=== PATIENT | male | born 1930 | race African-American/Black ===

== ENCOUNTER 2017-09-17 09:10 | Inpatient (IN) | payer MEDICARE, BC ==
[~2017-09-17] VITALS: Ht 182.9 cm; Wt 81.6 kg
--- NOTE | 2017-09-17 09:20 | Emergency Room Report ---
History of Present Illness General Chief Complaint: Altered Mental Status Source: Patient, EMS Present Illness HPI The patient was brought in by EMS. There summoned to the [facility] facility for altered level of consciousness. The staff reports that the patient had decreased responsiveness. He does have a history of a stroke and has left-handed weakness. The patient denies any pain, headache, weakness, vomiting, diarrhea, dysuria, shortness of breath, chest pain, palpitations. He's not sure why they called. He was recently treated for facial cellulitis with Keflex. This ended last month. His son states he is back to baseline at this time. 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 Tissue pathology not clear at this time. The son states his dad has not been pleased with the staff at the SNF and feels this might have led to decreased responsiveness. Allergies: Coded Allergies: No Known Allergies (Unverified , 09/17/17) Patient History Past Medical History: see triage record Social History Narrative SNF - selective treatment POLST Reviewed Nursing Documentation: PMH: Agreed, PSxH: Agreed Review of Systems All Other Systems: negative except mentioned in HPI Physical Exam Vital Signs Date Time Temp Pulse Resp B/P (MAP) Pulse Ox O2 Delivery O2 Flow Rate FiO2 09/17/17 09:09 84 18 151/78 99 Room Air Sp02 EP Interpretation: reviewed, normal General Appearance: well appearing, no apparent distress, GCS 15, Chronically Ill Head: normocephalic Eyes: bilateral eye normal inspection, bilateral eye PERRL ENT: moist mucus membranes Neck: supple Respiratory: lungs clear, normal breath sounds Cardiovascular #1: regular rate, rhythm Cardiovascular #2: 2+ radial (R) Gastrointestinal: normal inspection, normal bowel sounds, non tender, no mass, non-distended Musculoskeletal: back normal, non-tender, other - decreased strength L side Neurologic: alert, DTRs symmetric, sensory intact, speech normal, motor weakness - LUE, oriented - x2 Psychiatric: mood/affect normal Skin: normal inspection, warm/dry Medical Decision Making Diagnostic Impression: Primary Impression: Altered mental status Qualified Codes: R40.4 - Transient alteration of awareness ER Course Patient was presents with altered will status which is transient. Differential includes electrolyte abnormality, extension of stroke, TIA, arrhythmia, occult infection amongst others. He denies symptoms at this time. The fairly complicated patient with a prior left-sided weakness. He is alert at this time. Evaluation EKG, cardiac monitoring, chest x-ray, CT head and lab evaluation. EKG without injury. CXR in infiltrates. CT with chronic white matter changes. Labs with normal WBC, H/H, platelets, lytes except for minimally elevated creat. Urine clear. Patient improved, but needing observation. Admit tele Dr. Mcneal who requests Dr. Ramos. Laboratory Tests Test 09/17/17 09:28 White Blood Count 7.6 K/UL (4.8-10.8) Red Blood Count 4.21 M/UL (4.70-6.10) L Hemoglobin 11.4 G/DL (14.2-18.0) L Hematocrit 36.8 % (42.0-52.0) L Mean Corpuscular Volume 87 FL (80-99) Mean Corpuscular Hemoglobin 27.0 PG (27.0-31.0) Mean Corpuscular Hemoglobin Concent 30.8 G/DL (32.0-36.0) L Red Cell Distribution Width 14.7 % (11.6-14.8) Platelet Count 232 K/UL (150-450) Mean Platelet Volume 6.1 FL (6.5-10.1) L Neutrophils (%) (Auto) 67.1 % (45.0-75.0) Lymphocytes (%) (Auto) 18.4 % (20.0-45.0) L Monocytes (%) (Auto) 9.3 % (1.0-10.0) Eosinophils (%) (Auto) 4.3 % (0.0-3.0) H Basophils (%) (Auto) 0.9 % (0.0-2.0) Prothrombin Time 10.5 SEC (9.30-11.50) Prothrombin Time INR 1.0 (0.9-1.1) PTT 26 SEC (23-33) Urine Color Pale yellow Urine Appearance Clear Urine pH 6.5 (4.5-8.0) Urine Specific [place] 1.010 (1.005-1.035) Urine Protein Negative (NEGATIVE) Urine Glucose (UA) Negative (NEGATIVE) Urine Ketones Negative (NEGATIVE) Urine Occult Blood Negative (NEGATIVE) Urine Nitrite Negative (NEGATIVE) Urine Bilirubin Negative (NEGATIVE) Urine Urobilinogen Normal MG/DL (0.0-1.0) Urine Leukocyte Esterase 1+ (NEGATIVE) H Urine RBC 0-2 /HPF (0 - 0) H Urine WBC 2-4 /HPF (0 - 0) Urine Squamous Epithelial Cells Occasional /LPF Urine Bacteria Occasional /HPF (NONE) Sodium Level 141 MMOL/L (136-145) Potassium Level 4.6 MMOL/L (3.5-5.1) Chloride Level 104 MMOL/L (98-107) Carbon Dioxide Level 29 MMOL/L (21-32) Anion Gap 8 mmol/L (5-15) Blood Urea Nitrogen 13 mg/dL (7-18) Creatinine 1.4 MG/DL (0.55-1.30) H Estimate Glomerular Filtration Rate mL/min (>60) Glucose Level 117 MG/DL (74-106) H Lactic Acid Level Pending Calcium Level 10.2 MG/DL (8.5-10.1) H Total Bilirubin 0.5 MG/DL (0.2-1.0) Aspartate Amino Transferase (AST) 25 U/L (15-37) Alanine Aminotransferase (ALT) 32 U/L (12-78) Alkaline Phosphatase 121 U/L (46-116) H Total Creatine Kinase 44 U/L (26-308) Troponin I 0.049 ng/mL (0.000-0.056) Pro-B-Type Natriuretic Peptide 108 pg/mL (0-125) Total Protein 6.1 G/DL (6.4-8.2) L Albumin 3.2 G/DL (3.4-5.0) L Globulin 2.9 g/dL Albumin/Globulin Ratio 1.1 (1.0-2.7) Urine Opiates Screen Negative (NEGATIVE) Urine Barbiturates Screen Negative (NEGATIVE) Phencyclidine (PCP) Screen Negative (NEGATIVE) Urine Amphetamines Screen Negative (NEGATIVE) Urine Benzodiazepines Screen Negative (NEGATIVE) Urine Cocaine Screen Negative (NEGATIVE) Urine Marijuana (THC) Screen Negative (NEGATIVE) EKG Diagnostic Results Rate: normal Rhythm: NSR ST Segments: no acute changes Rhythm Strip Diag. Results EP Interpretation: yes Rhythm: NSR, no PVC's, no ectopy Chest X-Ray Diagnostic Results Chest X-Ray Diagnostic Results : Chest X-Ray Ordered: Yes # of Views/Limited/Complete: 1 View Indication: Other EP Interpretation: Yes Interpretation: no consolidation, no effusion, no pneumothorax, no acute cardiopulmonary disease, other - elevated R hemidiaphragm Impression: No acute disease Electronically Signed by: Endy Roger MD CT/MRI/US Diagnostic Results CT/MRI/US Diagnostic Results : Imaging Test Ordered: head Impression chronic white matter changes, no bleed Last Vital Signs Date Time Temp Pulse Resp B/P (MAP) Pulse Ox O2 Delivery O2 Flow Rate FiO2 09/18/17 00:00 97.3 83 20 164/74 97 Room Air Status: improved Disposition: ADMITTED INPATIENT Condition: Serious Endy Roger M.D. Sep 17, 2017 09:20
[2017-09-17] MEDS ORDERED: ASPIRIN81 MG ORAL (09:21)
[2017-09-17] MEDS ORDERED: ALFUZOSIN HCL10 MG PO (09:21)
[2017-09-17] MEDS ORDERED: ATORVASTATIN CA40 MG ORAL (09:21)
[2017-09-17] MEDS ORDERED: METOPROLOL TART25 MG ORAL (09:24)
[2017-09-17] MEDS ORDERED: MULTIVITAMINS1 EAC8 ORAL (09:24)
[2017-09-17] MEDS ORDERED: COLACE100 MG ORAL (09:24)
[2017-09-17] MEDS ORDERED: TENCON 50-3251 EACH PO (09:24)
[2017-09-17] MEDS ORDERED: MILK OF MA400 MG/51 ORAL (09:24)
[2017-09-17] MEDS ORDERED: PLAVIX75 MG ORAL (09:24)
[2017-09-17 09:25] VITALS: BP 141/66
[2017-09-17] MEDS ORDERED: RANEXA500 MG ORAL (09:25)
[2017-09-17] MEDS ORDERED: PROSCAR5 MG ORAL (09:25)
[2017-09-17] MEDS ORDERED: SINGULAIR10 MG ORAL (09:25)
[2017-09-17] MEDS ORDERED: VITAMIN A & D113 GM TP (09:25)
[2017-09-17 10:07] LABS: BASOPHILS % (AUTO) 0.9 % (0.0-2.0); EOSINOPHILS % (AUTO) 4.3 % (0.0-3.0); LYMPHOCYTES % (AUTO) 18.4 % (20.0-45.0); MEAN CORPUSCULAR HGB CONC 30.8 G/DL (32.0-36.0); MEAN CORPUSCULAR VOLUME 87 FL (80-99); MEAN PLATELET VOLUME 6.1 FL (6.5-10.1); MONOCYTES % (AUTO) 9.3 % (1.0-10.0); NEUTROPHILS % (AUTO) 67.1 % (45.0-75.0); PLATELET COUNT 232 K/UL (150-450); RED BLOOD COUNT 4.21 M/UL (4.70-6.10); RED CELL DISTRIBUTION WIDTH 14.7 % (11.6-14.8); WHITE BLOOD COUNT 7.6 K/UL (4.8-10.8)
[2017-09-17 10:10] LABS: KETONES,URINE NEGATIVE (NEGATIVE); LEUKOCYTE ESTERASE ,URINE 1+ (NEGATIVE); NITRITE,URINE NEGATIVE (NEGATIVE); PH,URINE 6.5 (4.5-8.0); PROTEIN,URINE NEGATIVE (NEGATIVE); UROBILINOGEN,URINE NORMAL MG/DL (0.0-1.0)
--- NOTE | 2017-09-17 10:12 | Diagnostic Imaging Report ---
Dictation: Chest pain Comparison: None Findings: Single view the chest is obtained. Heart size is normal. Pulmonary vasculature normal. There is elevation of the right hemidiaphragm compared to the left. No acute osseous abnormalities. Impression: No definite acute chest disease Elevated right hemidiaphragm
[2017-09-17 10:18] LABS: PROTHROMBIN TIME 10.5 SEC (9.30-11.50)
--- NOTE | 2017-09-17 10:18 | Diagnostic Imaging Report ---
Indication: ALOC Comparison: Altered level of consciousness Technique: Contiguous helical CT images of the brain was performed with [address] dose: Total DLP: 1333 mGycm; CTDI volume: 70.4 mGy Findings: There is no acute intracranial hemorrhage or infarct. No mass, mass effect or midline shift identified. Ventricles and sulci are prominent secondary to global cortical atrophy. There are no extra-axial fluid collections seen. Periventricular chronic ischemic changes are noted. Bony calvarium is intact. Mastoid air cells and visualized paranasal sinuses are clear. Impression: 1. No acute intracranial abnormalities. 2. Global cortical atrophy with periventricular chronic ischemic changes. The CT scanner at [facility] is accredited by the [employer] and the scans are performed using protocols designed to limit radiation exposure to as low as reasonably achievable to attain images of sufficient resolution adequate for diagnostic evaluation.
[2017-09-17 10:21] LABS: APPEARANCE,URINE CLEAR
[2017-09-17 10:24] LABS: ANION GAP 8 mmol/L (5-15); CALCIUM 10.2 MG/DL (8.5-10.1); CARBON DIOXIDE 29 MMOL/L (21-32); CHLORIDE 104 MMOL/L (98-107); CREATININE 1.4 MG/DL (0.55-1.30); POTASSIUM 4.6 MMOL/L (3.5-5.1); SODIUM 141 MMOL/L (136-145)
[2017-09-17 10:27] LABS: BACTERIA,URINE OCCASIONAL /HPF; RBC,URINE 0-2 /HPF (0 - 0); SQUAMOUS EPITHELIAL CELL,UR OCCASIONAL /LPF (NONE/OCC)
[2017-09-17 10:37] LABS: ALANINE AMINOTRANSFERASE 32 U/L (12-78); ALBUMIN/GLOBULIN RATIO 1.1 (1.0-2.7); ASPARTATE AMINO TRANSFERASE 25 U/L (15-37); TOTAL PROTEIN 6.1 G/DL (6.4-8.2)
[2017-09-17 12:39] VITALS: BP 152/67
[2017-09-17 13:40] VITALS: BP 160/65
--- NOTE | 2017-09-17 14:07 | Cardiac Electrophysiology PN ---
Subjective Subjective [id number] Objective Last 24 Hour Vital Signs Date Time Temp Pulse Resp B/P (MAP) Pulse Ox O2 Delivery O2 Flow Rate FiO2 09/17/17 13:40 98.3 71 15 160/65 99 Room Air 09/17/17 13:40 97.8 71 15 160/65 99 Room Air 09/17/17 12:39 77 18 152/67 99 Room Air 09/17/17 09:25 98.3 88 19 141/66 99 Room Air 09/17/17 09:09 98.2 84 18 151/78 99 Room Air Intake and Output 09/17/17 09/18/17 19:00 07:00 Output Total 400 ml Balance -400 ml Output Urine Total 400 ml Laboratory Tests Test 09/17/17 09:28 White Blood Count 7.6 K/UL (4.8-10.8) Red Blood Count 4.21 M/UL (4.70-6.10) L Hemoglobin 11.4 G/DL (14.2-18.0) L Hematocrit 36.8 % (42.0-52.0) L Mean Corpuscular Volume 87 FL (80-99) Mean Corpuscular Hemoglobin 27.0 PG (27.0-31.0) Mean Corpuscular Hemoglobin Concent 30.8 G/DL (32.0-36.0) L Red Cell Distribution Width 14.7 % (11.6-14.8) Platelet Count 232 K/UL (150-450) Mean Platelet Volume 6.1 FL (6.5-10.1) L Neutrophils (%) (Auto) 67.1 % (45.0-75.0) Lymphocytes (%) (Auto) 18.4 % (20.0-45.0) L Monocytes (%) (Auto) 9.3 % (1.0-10.0) Eosinophils (%) (Auto) 4.3 % (0.0-3.0) H Basophils (%) (Auto) 0.9 % (0.0-2.0) Prothrombin Time 10.5 SEC (9.30-11.50) Prothromb Time International Ratio 1.0 (0.9-1.1) Activated Partial Thromboplast Time 26 SEC (23-33) Urine Color Pale yellow Urine Appearance Clear Urine pH 6.5 (4.5-8.0) Urine Specific [place] 1.010 (1.005-1.035) Urine Protein Negative (NEGATIVE) Urine Glucose (UA) Negative (NEGATIVE) Urine Ketones Negative (NEGATIVE) Urine Occult Blood Negative (NEGATIVE) Urine Nitrite Negative (NEGATIVE) Urine Bilirubin Negative (NEGATIVE) Urine Urobilinogen Normal MG/DL (0.0-1.0) Urine Leukocyte Esterase 1+ (NEGATIVE) H Urine RBC 0-2 /HPF (0 - 0) H Urine WBC 2-4 /HPF (0 - 0) Urine Squamous Epithelial Cells Occasional /LPF Urine Bacteria Occasional /HPF (NONE) Sodium Level 141 MMOL/L (136-145) Potassium Level 4.6 MMOL/L (3.5-5.1) Chloride Level 104 MMOL/L (98-107) Carbon Dioxide Level 29 MMOL/L (21-32) Anion Gap 8 mmol/L (5-15) Blood Urea Nitrogen 13 mg/dL (7-18) Creatinine 1.4 MG/DL (0.55-1.30) H Estimat Glomerular Filtration Rate mL/min (>60) Glucose Level 117 MG/DL (74-106) H Lactic Acid Level 1.50 mmol/L (0.66-2.22) Calcium Level 10.2 MG/DL (8.5-10.1) H Total Bilirubin 0.5 MG/DL (0.2-1.0) Aspartate Amino Transf (AST/SGOT) 25 U/L (15-37) Alanine Aminotransferase (ALT/SGPT) 32 U/L (12-78) Alkaline Phosphatase 121 U/L (46-116) H Total Creatine Kinase 44 U/L (26-308) Troponin I 0.049 ng/mL (0.000-0.056) Pro-B-Type Natriuretic Peptide 108 pg/mL (0-125) Total Protein 6.1 G/DL (6.4-8.2) L Albumin 3.2 G/DL (3.4-5.0) L Globulin 2.9 g/dL Albumin/Globulin Ratio 1.1 (1.0-2.7) Urine Opiates Screen Negative (NEGATIVE) Urine Barbiturates Screen Negative (NEGATIVE) Phencyclidine (PCP) Screen Negative (NEGATIVE) Urine Amphetamines Screen Negative (NEGATIVE) Urine Benzodiazepines Screen Negative (NEGATIVE) Urine Cocaine Screen Negative (NEGATIVE) Urine Marijuana (THC) Screen Negative (NEGATIVE) TOLUIE,OFELIA Sep 17, 2017 14:07
[2017-09-17 16:45] VITALS: BP 149/87
[2017-09-17] MEDS ORDERED: Acetaminophen 500mg (ES) tab ORAL PRN (17:15)
[2017-09-17] MEDS: Docusate 100mg cap ORAL SCH (18:23)
[2017-09-17 20:00] VITALS: BP 158/76
--- NOTE | 2017-09-17 21:45 | Consultation ---
DATE OF CONSULTATION: 09/17/2017 CARDIOLOGY CONSULTATION CONSULTING PHYSICIAN: Christophe Guzman M.D. REFERRING PHYSICIAN: Victoriano Ramos M.D. REASON FOR CONSULTATION: Altered level of consciousness. HISTORY OF PRESENT ILLNESS: The patient is an 87-year-old gentleman with recent history of facial cellulitis, was treated with Keflex last month. The patient was brought by EMS to the hospital as [facility] and had decreased responsiveness. The patient has history of stroke and left-sided weakness as well. The patient was admitted and Cardiology consultation was obtained for further evaluation. At the time of my evaluation, the patient does not have any chest pain, palpitation, or shortness of breath and does not know why he is in the hospital. PAST MEDICAL HISTORY: 1. CVA. 2. Mild dementia. FAMILY HISTORY: Noncontributory. SOCIAL HISTORY: He lives in [place], does not smoke or drink alcohol. REVIEW OF SYSTEMS: Review of systems was negative other than what was mentioned in the history of present illness. PHYSICAL EXAMINATION: VITAL SIGNS: Blood pressure is 151/78, pulse 84, respirations 18, and he is afebrile. HEAD AND NECK: Shows no JVD. LUNGS: Clear. CARDIOVASCULAR: Shows regular S1 and S2 with no gallop or murmur. ABDOMEN: Soft. EXTREMITIES: No pitting edema. LABORATORY AND DIAGNOSTIC DATA: White count is 7.0, hemoglobin 11.4, hematocrit 36.0, and platelets 232,000. Sodium 141, potassium 4.3, BUN 13, creatinine 1.4, and glucose of 117. Troponin is 0.049. BNP is 108. His urine toxicology is negative. UA was essentially negative. ASSESSMENT AND PLAN: 1. Altered level of consciousness. The etiology is not clear at this time. The patient underwent head CT that showed no acute intracranial abnormality. The patient is on telemetry and we would get echocardiogram and carotid Doppler and repeat EKG for further evaluation. 2. Cerebrovascular accident with hemiparesis. 3. Hypertension. We will start the patient on Norvasc 5 mg daily and add p.r.n. clonidine. Thank you very much, Dr. Ramos, for allowing me to participate in the care of this patient. Please do not hesitate to contact me for any questions regarding my evaluation. Christophe Guzman M.D. DR: Karin JOB#: [id number] CC:
[2017-09-17] MEDS: Ranolazine 500mg tab ORAL SCH (22:21)
[2017-09-17] MEDS: Metoprolol 25mg tab ORAL SCH (22:22)
[2017-09-17] MEDS: Montelukast 10mg tablet ORAL SCH (22:22)
--- NOTE | 2017-09-17 23:00 | History and Physical Report ---
DATE OF ADMISSION: 09/17/2017 HISTORY OF PRESENT ILLNESS: This is an 87-year-old male, came to the emergency room for altered mental status. The patient was found with acute renal insufficiency and dehydration. The patient was given IV fluids. The patient is currently improving. He has no fever or chills. The patient is still claiming of not feeling well, but he is alert and oriented x3. PAST MEDICAL HISTORY: Significant for chronic back pain, status post surgery. ALLERGIES: NKA. MEDICATIONS: See the list. PHYSICAL EXAMINATION: GENERAL: This is an elderly male. VITAL SIGNS: Blood pressure is 140/90, pulse 60, respirations 18, no fever. SKIN: Good skin turgor. HEENT: NAD. CHEST: Bilaterally clear. CARDIOVASCULAR: Regular rhythm. No gallop. No murmur. ABDOMEN: Soft. Positive bowel sounds. Nontender. EXTREMITIES: No CCE. NEUROLOGICAL: Generalized weakness. GENITOURINARY: Deferred. LABORATORY AND DIAGNOSTIC DATA: BUN 41, creatinine 1.4, and glucose is normal. White counts are normal. Troponins are negative. EKG, normal sinus rhythm. ASSESSMENT: 1. Altered mental status. 2. Hypertension. 3. Back pain. 4. Status post laminectomy. PLAN: We will currently continue current treatment. Add aspirin. Consider Cardiology consult. Continue Neuro-check, PT and OT. Roni Mcneal M.D. DR: IVELISSE JOB#: [id number] CC:
[2017-09-18] VITALS: BP 164/74
[2017-09-18 04:00] VITALS: BP 164/74
[2017-09-18] MEDS: Ranolazine 500mg tab ORAL SCH ×2 (08:05→21:21)
[2017-09-18] MEDS: Docusate 100mg cap ORAL SCH ×2 (08:05→17:56)
[2017-09-18] MEDS: Metoprolol 25mg tab ORAL SCH ×2 (08:10→21:22)
[2017-09-18] MEDS: Aspirin EC 81mg tab ORAL SCH (08:10)
[2017-09-18 08:38] VITALS: BP 138/90
[2017-09-18] MEDS ORDERED: Aspirin Baby 81mg ORAL SCH (09:00)
[2017-09-18 10:52] LABS: THYROID STIMULATING HORMONE 2.924 uiU/mL (0.360-3.740)
[2017-09-18 11:38] VITALS: BP 142/76
[2017-09-18 15:53] VITALS: BP 142/67
[2017-09-18 20:33] VITALS: BP 150/82
[2017-09-18] MEDS: Montelukast 10mg tablet ORAL SCH (21:22)
--- NOTE | 2017-09-18 22:36 | Nephrology Progress Note ---
Assessment/Plan Problem List: (1) Altered mental status (2) JONES (acute kidney injury) Assessment: vs CKD. Plan Cardio eval. Monitor labs. Monitor renal fxn. Will follow. Subjective Subjective late entry for 09/17 - 87 y/o m from snf with history of stroke admitted with AMS. However, now appears to be back at baseline. No new complaints at this time. Objective Objective Last 24 Hour Vital Signs Date Time Temp Pulse Resp B/P (MAP) Pulse Ox O2 Delivery O2 Flow Rate FiO2 09/18/17 21:22 82 150/82 09/18/17 20:33 98.2 82 19 150/82 96 Room Air 09/18/17 16:00 70 09/18/17 15:53 96.8 77 20 142/67 100 Room Air 09/18/17 12:00 71 09/18/17 11:38 96.9 82 20 142/76 96 Room Air 09/18/17 10:05 78 09/18/17 10:00 77 09/18/17 08:38 96.6 89 20 138/90 95 Room Air 09/18/17 08:10 89 150/90 09/18/17 08:00 94 09/18/17 04:00 84 09/18/17 04:00 97.3 67 20 164/74 97 Room Air 09/18/17 00:00 97.3 83 20 164/74 97 Room Air 09/18/17 00:00 62 Intake and Output 09/18/17 09/19/17 19:00 07:00 Intake Total 950 ml Output Total 950 ml Balance 0 ml Intake Oral 950 ml Output Urine Total 950 ml Laboratory Tests 09/18/17 08:27: Troponin I 0.053, Thyroid Stimulating Hormone (TSH) 2.924, Free Thyroxine 0.97 Height (Feet): 6 Height (Inches): 0.00 Weight (Pounds): 180 General Appearance: no apparent distress Cardiovascular: normal rate, regular rhythm Respiratory/Chest: lungs clear Abdomen: non tender, soft Extremities: non-pitting Neurologic: alert CYNTHIA ABDI Sep 18, 2017 22:36
--- NOTE | 2017-09-18 22:37 | Nephrology Progress Note ---
Assessment/Plan Problem List: (1) Altered mental status (2) JONES (acute kidney injury) Assessment: vs CKD. Plan Cardio eval. Monitor labs. Monitor renal fxn. PT/OT. Subjective Subjective no acute events. comfortable. Objective Objective Last 24 Hour Vital Signs Date Time Temp Pulse Resp B/P (MAP) Pulse Ox O2 Delivery O2 Flow Rate FiO2 09/18/17 21:22 82 150/82 09/18/17 20:33 98.2 82 19 150/82 96 Room Air 09/18/17 16:00 70 09/18/17 15:53 96.8 77 20 142/67 100 Room Air 09/18/17 12:00 71 09/18/17 11:38 96.9 82 20 142/76 96 Room Air 09/18/17 10:05 78 09/18/17 10:00 77 09/18/17 08:38 96.6 89 20 138/90 95 Room Air 09/18/17 08:10 89 150/90 09/18/17 08:00 94 09/18/17 04:00 84 09/18/17 04:00 97.3 67 20 164/74 97 Room Air 09/18/17 00:00 97.3 83 20 164/74 97 Room Air 09/18/17 00:00 62 Intake and Output 09/18/17 09/19/17 19:00 07:00 Intake Total 950 ml Output Total 950 ml Balance 0 ml Intake Oral 950 ml Output Urine Total 950 ml Laboratory Tests 09/18/17 08:27: Troponin I 0.053, Thyroid Stimulating Hormone (TSH) 2.924, Free Thyroxine 0.97 Height (Feet): 6 Height (Inches): 0.00 Weight (Pounds): 180 General Appearance: no apparent distress Cardiovascular: normal rate, regular rhythm Respiratory/Chest: lungs clear Abdomen: non tender, soft RICHARCYNTHIA HAILE Sep 18, 2017 22:37
[2017-09-19 00:53] VITALS: BP 145/79
[2017-09-19 04:00] VITALS: BP 147/69
[2017-09-19 08:12] LABS: ANION GAP 6 mmol/L (5-15); CALCIUM 10.3 MG/DL (8.5-10.1); CARBON DIOXIDE 28 MMOL/L (21-32); CHLORIDE 106 MMOL/L (98-107); CREATININE 1.3 MG/DL (0.55-1.30); SODIUM 140 MMOL/L (136-145)
[2017-09-19 08:42] VITALS: BP 153/70
[2017-09-19] MEDS: Metoprolol 25mg tab ORAL SCH ×2 (09:34→21:53)
[2017-09-19] MEDS: Docusate 100mg cap ORAL SCH ×2 (09:34→17:44)
[2017-09-19] MEDS: Aspirin EC 81mg tab ORAL SCH (09:34)
[2017-09-19] MEDS: Ranolazine 500mg tab ORAL SCH ×2 (09:35→21:53)
[2017-09-19 12:00] VITALS: BP 143/70
--- NOTE | 2017-09-19 13:08 | Cardiac Electrophysiology PN ---
Assessment/Plan Assessment/Plan 1. Altered level of consciousness. The etiology is not clear at this time. The patient underwent head CT that showed no acute intracranial abnormality. No arrhythmias on telemetry and echocardiogram showed Nl EF and carotid Doppler showed no stenosis. 2. Cerebrovascular accident with hemiparesis. 3. Hypertension. On Lopressor 25 bid and p.r.n. clonidine. VIKKI RN Subjective Subjective Feeling better. No chest pain or SOB.No Arrhythmias on tele. Objective Last 24 Hour Vital Signs Date Time Temp Pulse Resp B/P (MAP) Pulse Ox O2 Delivery O2 Flow Rate FiO2 09/19/17 09:34 93 153/70 09/19/17 08:42 97.8 93 19 153/70 Room Air 09/19/17 08:00 89 09/19/17 04:00 82 09/19/17 04:00 98.2 85 20 147/69 96 Room Air 09/19/17 00:53 98.2 89 20 145/79 95 Room Air 09/19/17 00:00 68 09/18/17 21:22 82 150/82 09/18/17 21:00 87 93 09/18/17 20:33 98.2 82 19 150/82 96 Room Air 09/18/17 20:00 91 09/18/17 16:00 70 09/18/17 15:53 96.8 77 20 142/67 100 Room Air Laboratory Tests Test 09/19/17 07:45 Sodium Level 140 MMOL/L (136-145) Potassium Level 4.0 MMOL/L (3.5-5.1) Chloride Level 106 MMOL/L (98-107) Carbon Dioxide Level 28 MMOL/L (21-32) Anion Gap 6 mmol/L (5-15) Blood Urea Nitrogen 10 mg/dL (7-18) Creatinine 1.3 MG/DL (0.55-1.30) Estimat Glomerular Filtration Rate mL/min (>60) Glucose Level 129 MG/DL (74-106) H Calcium Level 10.3 MG/DL (8.5-10.1) H Microbiology Date/Time Source Procedure Growth Status 09/17/17 18:00 Nasal Nares MRSA Culture - Final NO METHICILLIN RESISTANT STAPH AUREUS... Complete 09/17/17 18:00 Rectum VRE Culture - Final Enterococcus Faecalis - Vre Complete Objective HEAD AND NECK: Shows no JVD. LUNGS: Clear. CARDIOVASCULAR: Shows regular S1 and S2 with no gallop or murmur. ABDOMEN: Soft. EXTREMITIES: No pitting edema. OFELIA OGDEN Sep 19, 2017 13:08
[2017-09-19 16:00] VITALS: BP 145/73
--- NOTE | 2017-09-19 16:21 | Infectious Diseases Prog Note ---
Assessment/Plan Problems: (1) Colonization with VRE (vancomycin-resistant enterococcus) Assessment & Plan: no need for any antibiotics, patient is colonized only, just keep in contact isolation while in hospital (2) JONES (acute kidney injury) Assessment & Plan: continue hydration, monitor renal function , nephrology is following (3) Altered mental status Assessment & Plan: continue tele monitor, and neuro check Subjective Allergies: Coded Allergies: No Known Allergies (Unverified , 09/17/17) Objective Vital Signs Last 24 Hour Vital Signs Date Time Temp Pulse Resp B/P (MAP) Pulse Ox O2 Delivery O2 Flow Rate FiO2 09/19/17 12:00 73 09/19/17 12:00 97.2 81 18 143/70 Room Air 09/19/17 09:34 93 153/70 09/19/17 08:42 97.8 93 19 153/70 Room Air 09/19/17 08:00 89 09/19/17 04:00 82 09/19/17 04:00 98.2 85 20 147/69 96 Room Air 09/19/17 00:53 98.2 89 20 145/79 95 Room Air 09/19/17 00:00 68 09/18/17 21:22 82 150/82 09/18/17 21:00 87 93 09/18/17 20:33 98.2 82 19 150/82 96 Room Air 09/18/17 20:00 91 Height (Feet): 6 Height (Inches): 0.00 Weight (Pounds): 180 Microbiology Date/Time Source Procedure Growth Status 09/17/17 18:00 Nasal Nares MRSA Culture - Final NO METHICILLIN RESISTANT STAPH AUREUS... Complete 09/17/17 18:00 Rectum VRE Culture - Final Enterococcus Faecalis - Vre Complete Laboratory Tests Test 09/19/17 07:45 Sodium Level 140 MMOL/L (136-145) Potassium Level 4.0 MMOL/L (3.5-5.1) Chloride Level 106 MMOL/L (98-107) Carbon Dioxide Level 28 MMOL/L (21-32) Anion Gap 6 mmol/L (5-15) Blood Urea Nitrogen 10 mg/dL (7-18) Creatinine 1.3 MG/DL (0.55-1.30) Estimat Glomerular Filtration Rate mL/min (>60) Glucose Level 129 MG/DL (74-106) H Calcium Level 10.3 MG/DL (8.5-10.1) H Current Medications Medications (Trade) Dose Ordered Sig/Noemy Route PRN Reason Start Time Stop Time Status Last Admin Dose Admin Acetaminophen (Tylenol) 500 mg Q4H PRN ORAL Mild Pain/Temp > 100.5 09/17/17 17:15 10/17/17 17:14 Alfuzosin HCl (Uroxatrol) 10 mg DAILY ORAL 09/17/17 20:00 10/17/17 19:59 09/19/17 09:35 Aspirin (Ecotrin) 81 mg DAILY ORAL 09/18/17 09:00 10/18/17 08:59 09/19/17 09:34 Atorvastatin Calcium (Lipitor) 40 mg BEDTIME ORAL 09/17/17 21:00 10/17/17 20:59 09/18/17 21:22 Clopidogrel Bisulfate (Plavix) 75 mg DAILY ORAL 09/18/17 09:00 10/18/17 08:59 09/19/17 09:34 Docusate Sodium (Colace) 100 mg TWICE A DAY ORAL 09/17/17 18:00 10/17/17 17:59 09/19/17 09:34 Finasteride (Proscar) 5 mg DAILY ORAL 09/18/17 09:00 10/18/17 08:59 09/19/17 09:35 Metoprolol Tartrate (Lopressor) 25 mg Q12HR ORAL 09/17/17 21:00 10/17/17 20:59 09/19/17 09:34 Montelukast Sodium (Singulair) 10 mg QHS ORAL 09/17/17 21:00 10/17/17 20:59 09/18/17 21:22 Ranolazine (Ranexa ER 500mg) 500 mg Q12HR ORAL 09/17/17 21:00 10/17/17 20:59 09/19/17 09:35 Allison Reynoso M.D. Sep 19, 2017 16:21
--- NOTE | 2017-09-19 16:56 | Nephrology Progress Note ---
Assessment/Plan Problem List: (1) Altered mental status (2) JONES (acute kidney injury) (3) Colonization with VRE (vancomycin-resistant enterococcus) Plan Continue current treatment plan Monitor renal function, avoid nephrotoxins Monitor lytes, correct prn Monitor intake and output DVT Prophylaxis AM labs DC plan Subjective Constitutional: Denies: no symptoms, chills, diaphoresis, fever, malaise, weakness, other HEENT: Denies: no symptoms, eye pain, blurred vision, tearing, double vision, ear pain, ear discharge, nose pain, nose congestion, throat pain, throat swelling, mouth pain, mouth swelling, other Genitourinary: Denies: no symptoms, burning, discharge, frequency, flank pain, hematuria, incontinence, pain, urgency, other Neurologic/Psychiatric: Denies: no symptoms, anxiety, depressed, emotional problems, headache, numbness, paresthesia, pre-existing deficit, seizure, tingling, tremors, weakness, other Subjective In bed, in no distress, denies discomfort Objective Objective Last 24 Hour Vital Signs Date Time Temp Pulse Resp B/P (MAP) Pulse Ox O2 Delivery O2 Flow Rate FiO2 09/19/17 16:00 97.2 79 18 145/73 96 Room Air 09/19/17 12:00 73 09/19/17 12:00 97.2 81 18 143/70 Room Air 09/19/17 09:34 93 153/70 09/19/17 08:42 97.8 93 19 153/70 Room Air 09/19/17 08:00 89 09/19/17 04:00 82 09/19/17 04:00 98.2 85 20 147/69 96 Room Air 09/19/17 00:53 98.2 89 20 145/79 95 Room Air 09/19/17 00:00 68 09/18/17 21:22 82 150/82 09/18/17 21:00 87 93 09/18/17 20:33 98.2 82 19 150/82 96 Room Air 09/18/17 20:00 91 Laboratory Tests 09/19/17 07:45: Sodium Level 140, Potassium Level 4.0, Chloride Level 106, Carbon Dioxide Level 28, Anion Gap 6, Blood Urea Nitrogen 10, Creatinine 1.3, Estimat Glomerular Filtration Rate , Glucose Level 129H, Calcium Level 10.3H Height (Feet): 6 Height (Inches): 0.00 Weight (Pounds): 180 General Appearance: no apparent distress, alert EENT: normal ENT inspection Neck: normal alignment, supple Cardiovascular: normal rate, regular rhythm Respiratory/Chest: normal breath sounds, no respiratory distress Abdomen: non tender, soft, no organomegaly Genitourinary/Rectal: other - jean-baptiste Extremities: non-tender, normal inspection Neurologic: alert, responsive, normal mood/affect Violeta Kaur N.P. Sep 19, 2017 16:56
--- NOTE | 2017-09-19 17:17 | Consultation ---
DATE OF CONSULTATION: 09/19/2017 INFECTIOUS DISEASE CONSULTATION CONSULTING PHYSICIAN: Allison Reynoso M.D. REQUESTING PHYSICIAN: Victoriano Ramos M.D. REASON FOR CONSULTATION: Vancomycin-resistant enterococcus positive in the rectum. Recommendation for antibiotics treatment. HISTORY OF PRESENT ILLNESS: The patient is an 87-year-old male, who lives at the senior living facility, was sent to [facility] emergency room for decreased level of consciousness and responsiveness. The patient had a history of stroke and left-sided weakness. He was recently treated for facial cellulitis with Keflex, which improved. The patient was found to be less responsive at the senior living facility, so he was sent for further evaluation. Per patient, he had no headache, weakness, vomiting, diarrhea, shortness of breath, chest pain, or palpitation. He is not aware why he was brought into the hospital. The patient seems to be back at his baseline at this time. Part of his screening at the hospital, he had rectal screening, which was positive for vancomycin-resistant enterococcus. So, I was consulted by the primary provider for antibiotics treatment and further management. PAST MEDICAL HISTORY: Significant for facial cellulitis, spinal column tumor, status post laminectomy, and CVA with left-sided weakness. PAST SURGICAL HISTORY: He had spinal laminectomy for a benign tumor removal of the spine. MEDICATIONS: He is on aspirin, Plavix, Proscar, Lopressor, Ranexa, Lipitor, Singulair, Uroxatral, Colace, and Tylenol. ALLERGIES: No known drug allergy. SOCIAL HISTORY: The patient lives at the senior living facility. No recent drugs, tobacco, or alcohol. FAMILY HISTORY: Not contributory. REVIEW OF SYSTEMS: A 14-point of system reviewed were all negative apart from the one I mentioned above in my history and physical. PHYSICAL EXAMINATION: GENERAL: An elderly male, up in bed, awake, alert, and not in acute distress. VITAL SIGNS: Temperature 97.2, pulse 73, respirations 18, blood pressure 143/70, and saturation 96% on room air. HEENT: Normocephalic and atraumatic. Pupils reactive to light. Moist oral mucosa. No exudate. NECK: Supple. No lymphadenopathy. CARDIOVASCULAR: Regular rate and rhythm. No murmur or gallop. LUNGS: Clear bilaterally. No wheezing or rhonchi. Normal breathing effort. ABDOMEN: Soft, nontender, and nondistended. Positive bowel sounds. No hepatosplenomegaly or ascites. EXTREMITY: No edema or cyanosis. LABORATORY DATA: Laboratories on 09/17/2017 showed white count of 7.6, hemoglobin of 11.4, and platelet count of 232,000. BUN of 10, creatinine of 1.3, glucose 129, and calcium 10.3. Urinalysis showed +1 leukocyte esterase and occasional bacteria. MICROBIOLOGY: Rectal culture grew Enterococcus faecalis, resistant to vancomycin. Nares culture negative for MRSA. IMAGING: Head CT scan showed no acute intracranial abnormalities and global cortical atrophy with periventricular chronic ischemic change. Chest x-ray showed no definite acute chest disease and elevated right hemidiaphragm. ASSESSMENT AND RECOMMENDATIONS: 1. Colonization with vancomycin-resistant enterococcus. No need for any antibiotics treatment at this point. The patient is colonized only. Just keep him in contact isolation while in hospital to avoid transmission of this resistant bacteria to another patient. 2. Acute renal failure, suspect dehydration, improving. Continue hydration. Monitor renal function. Nephrology is following. 3. Altered mental status seems to be improving. Continue tele monitor to rule out arrhythmia and neuro check. Cardiology is following. Thank you for the consult. Infectious Disease will continue to follow. Allison Reynoso M.D. DR: GEE JOB#: [id number] CC:
[2017-09-19 20:00] VITALS: BP 146/86
--- NOTE | 2017-09-19 20:41 | Diagnostic Imaging Report ---
APPROVED REPORT CPT Code: 59183 Vascular Symptoms Syncope Comments: Hx angina pectoris, hypertension. Doppler Spectral Velocity Analysis RightLeft RIGHT SIDE: CCA/BULB- Imaging reveals irregular, mild plaque in the carotid bulb and irregular, minimal plaque in the carotid artery. Doppler spectral flow analysis indicates reveals no significant plaque in the internal and external carotid arteries. VERTEBRAL - The vertebral artery is patent, without evidence of stenosis or steal. LEFT SIDE: CCA/BULB- Imaging reveals irregular, minimal plaque in the carotid bulb and in the proximal ICA (10% - 20%). Imaging reveals no significant plaque in the external carotid artery. VERTEBRAL - The vertebral artery is patent, without evidence of stenosis or steal.
[2017-09-19] MEDS: Montelukast 10mg tablet ORAL SCH (21:53)
[2017-09-19] MEDS ORDERED: Atorvastatin 20mg tab ORAL SCH (22:00)
--- NOTE | 2017-09-19 22:00 | Consultation ---
History of Present Illness General Date patient seen: Sep 17, 2017 Chief Complaint: Altered Mental Status Present Illness HPI 87-year-old male, came to the emergency room for altered mental status. The patient was found with acute renal insufficiency and dehydration. the pt was pw waxing and waning of conciousness and was confused, disoriented and agitated Allergies: Coded Allergies: No Known Allergies (Unverified , 09/17/17) Medication History Scheduled Alfuzosin* (Uroxatrol*), 10 MG PO DAILY, (Reported) Aspirin* (Aspirin*), 81 MG ORAL DAILY, (Reported) Atorvastatin Calcium* (Atorvastatin Calcium*), 40 MG ORAL BEDTIME, (Reported) Clopidogrel Bisulfate* (Plavix*), 75 MG ORAL DAILY, (Reported) Docusate Sodium* (Colace*), 100 MG ORAL TWICE A DAY, (Reported) Finasteride* (Proscar*), 5 MG ORAL DAILY, (Reported) Metoprolol Tartrate* (Metoprolol Tartrate*), 25 MG ORAL EVERY 12 HOURS, ( Reported) Montelukast Sodium* (Singulair*), 10 MG ORAL DAILY, (Reported) Multivitamin With Minerals (Multivitamins With Minerals*), 1 TAB ORAL DAILY, ( Reported) Petrolatum,White/Lanolin (Vitamin A & D Ointment), 113 GM TP DAILY, (Reported) Ranolazine* (Ranexa*), 500 MG ORAL EVERY 12 HOURS, (Reported) Scheduled PRN Butalbital/Acetaminophen (Tencon 50-325 mg Tablet), 1 EACH PO EVERY 4 HOURS PRN for For Headache, (Reported) Magnesium Hydroxide* (Milk Of Magnesia*), 30 ML ORAL DAILY PRN for Constipation, (Reported) Patient History Limited by: medical condition History Provided By: Patient, Medical Record, PMD Healthcare decision maker Resuscitation status Do Not Resuscitate Advanced Directive on File No Review of Systems Psychiatric: Reports: prior hx, anxiety, emotional problems Physical Exam General Appearance: lethargic, confused, agitated Neurologic: disoriented, unresponsiveness, depressed affect Last 24 Hour Vital Signs Date Time Temp Pulse Resp B/P (MAP) Pulse Ox O2 Delivery O2 Flow Rate FiO2 09/19/17 20:00 97.9 91 20 146/86 96 Room Air 09/19/17 16:00 97.2 79 18 145/73 96 Room Air 09/19/17 16:00 84 09/19/17 12:00 73 09/19/17 12:00 97.2 81 18 143/70 Room Air 09/19/17 09:34 93 153/70 09/19/17 08:42 97.8 93 19 153/70 Room Air 09/19/17 08:00 89 09/19/17 04:00 82 09/19/17 04:00 98.2 85 20 147/69 96 Room Air 09/19/17 00:53 98.2 89 20 145/79 95 Room Air 09/19/17 00:00 68 Intake and Output 09/19/17 09/20/17 19:00 07:00 Output Total 400 ml Balance -400 ml Output Urine Total 400 ml # Bowel Movements 1 Laboratory Tests Test 09/19/17 07:45 Sodium Level 140 MMOL/L (136-145) Potassium Level 4.0 MMOL/L (3.5-5.1) Chloride Level 106 MMOL/L (98-107) Carbon Dioxide Level 28 MMOL/L (21-32) Anion Gap 6 mmol/L (5-15) Blood Urea Nitrogen 10 mg/dL (7-18) Creatinine 1.3 MG/DL (0.55-1.30) Estimat Glomerular Filtration Rate mL/min (>60) Glucose Level 129 MG/DL (74-106) H Calcium Level 10.3 MG/DL (8.5-10.1) H Height (Feet): 6 Height (Inches): 0.00 Weight (Pounds): 180 Medications Current Medications Medications (Trade) Dose Ordered Sig/Noemy Route PRN Reason Start Time Stop Time Status Last Admin Dose Admin Acetaminophen (Tylenol) 500 mg Q4H PRN ORAL Mild Pain/Temp > 100.5 09/17/17 17:15 10/17/17 17:14 Alfuzosin HCl (Uroxatrol) 10 mg DAILY ORAL 09/17/17 20:00 10/17/17 19:59 09/19/17 09:35 Aspirin (Ecotrin) 81 mg DAILY ORAL 09/18/17 09:00 10/18/17 08:59 09/19/17 09:34 Atorvastatin Calcium (Lipitor) 40 mg BEDTIME ORAL 09/19/17 22:00 10/19/17 21:59 Clopidogrel Bisulfate (Plavix) 75 mg DAILY ORAL 09/18/17 09:00 10/18/17 08:59 09/19/17 09:34 Docusate Sodium (Colace) 100 mg TWICE A DAY ORAL 09/17/17 18:00 10/17/17 17:59 09/19/17 17:44 Finasteride (Proscar) 5 mg DAILY ORAL 09/18/17 09:00 10/18/17 08:59 09/19/17 09:35 Metoprolol Tartrate (Lopressor) 25 mg Q12HR ORAL 09/17/17 21:00 10/17/17 20:59 09/19/17 09:34 Montelukast Sodium (Singulair) 10 mg QHS ORAL 09/17/17 21:00 10/17/17 20:59 09/18/17 21:22 Ranolazine (Ranexa ER 500mg) 500 mg Q12HR ORAL 09/17/17 21:00 10/17/17 20:59 09/19/17 09:35 Assessment/Plan Assessment/Plan encephalopathy low dose antipsychotic Soraida Calix M.D. Sep 19, 2017 22:00
--- NOTE | 2017-09-19 22:01 | General Progress Note ---
Assessment/Plan Status: doing well, stable, progressing Subjective Date patient seen: Sep 19, 2017 Allergies: Coded Allergies: No Known Allergies (Unverified , 09/17/17) Subjective the pt is improved however confused about the situation Objective Last 24 Hour Vital Signs Date Time Temp Pulse Resp B/P (MAP) Pulse Ox O2 Delivery O2 Flow Rate FiO2 09/19/17 20:00 97.9 91 20 146/86 96 Room Air 09/19/17 16:00 97.2 79 18 145/73 96 Room Air 09/19/17 16:00 84 09/19/17 12:00 73 09/19/17 12:00 97.2 81 18 143/70 Room Air 09/19/17 09:34 93 153/70 09/19/17 08:42 97.8 93 19 153/70 Room Air 09/19/17 08:00 89 09/19/17 04:00 82 09/19/17 04:00 98.2 85 20 147/69 96 Room Air 09/19/17 00:53 98.2 89 20 145/79 95 Room Air 09/19/17 00:00 68 Intake and Output 09/19/17 09/20/17 19:00 07:00 Output Total 400 ml Balance -400 ml Output Urine Total 400 ml # Bowel Movements 1 Laboratory Tests 09/19/17 07:45: Sodium Level 140, Potassium Level 4.0, Chloride Level 106, Carbon Dioxide Level 28, Anion Gap 6, Blood Urea Nitrogen 10, Creatinine 1.3, Estimat Glomerular Filtration Rate , Glucose Level 129H, Calcium Level 10.3H Height (Feet): 6 Height (Inches): 0.00 Weight (Pounds): 180 General Appearance: no apparent distress, alert Neurologic: alert, responsive, depressed affect Soraida Calix M.D. Sep 19, 2017 22:01
[2017-09-20] VITALS: BP 146/69
[2017-09-20 04:00] VITALS: BP 143/70
[2017-09-20 08:00] VITALS: BP 134/71
[2017-09-20] MEDS: Aspirin EC 81mg tab ORAL SCH (08:57)
[2017-09-20] MEDS: Docusate 100mg cap ORAL SCH (08:57)
[2017-09-20] MEDS: Metoprolol 25mg tab ORAL SCH (08:57)
[2017-09-20] MEDS: Ranolazine 500mg tab ORAL SCH (08:59)
[2017-09-20 11:47] VITALS: BP 131/71
--- NOTE | 2017-09-20 17:34 | Infectious Diseases Prog Note ---
Assessment/Plan Problems: (1) Colonization with VRE (vancomycin-resistant enterococcus) Assessment & Plan: no need for any antibiotics, patient is colonized only, just keep in contact isolation while in hospital (2) JONES (acute kidney injury) Assessment & Plan: continue hydration, monitor renal function , follow up with nephrology. (3) Altered mental status Assessment & Plan: resolved, follow up with neurology . Subjective Constitutional: Reports: no symptoms HEENT: Reports: no symptoms Respiratory: Reports: no symptoms Breasts: Reports: no symptoms Cardiovascular: Reports: no symptoms Gastrointestinal/Abdominal: Reports: no symptoms Genitourinary: Reports: no symptoms Neurologic: Reports: no symptoms Psychiatric: Reports: no symptoms Skin: Reports: no symptoms Endocrine: Reports: no symptoms Hematologic: Reports: no symptoms Musculoskeletal: Reports: no symptoms Allergies: Coded Allergies: No Known Allergies (Unverified , 09/17/17) Objective Vital Signs Last 24 Hour Vital Signs Date Time Temp Pulse Resp B/P (MAP) Pulse Ox O2 Delivery O2 Flow Rate FiO2 09/20/17 11:47 97.3 98 20 131/71 96 Room Air 09/20/17 08:57 91 134/71 09/20/17 08:00 95 09/20/17 08:00 98.2 91 20 134/71 95 Room Air 09/20/17 04:16 80 09/20/17 04:00 97.3 90 20 143/70 96 Room Air 09/20/17 00:00 98.1 83 20 146/69 Room Air 09/19/17 23:47 69 09/19/17 21:53 91 146/86 09/19/17 20:00 97.9 91 20 146/86 96 Room Air 09/19/17 19:27 90 Height (Feet): 6 Height (Inches): 0.00 Weight (Pounds): 180 General Appearance: WD/WN, no acute distress HEENT: normocephalic, atraumatic, anicteric, mucous membranes moist, supple, no JVD Respiratory/Chest: chest wall non-tender, lungs clear, normal breath sounds, no respiratory distress, no accessory muscle use Cardiovascular: normal peripheral pulses, normal rate, regular rhythm, no gallop/murmur, no JVD Abdomen: normal bowel sounds, soft, non tender, no organomegaly, non distended , no mass Extremities: no cyanosis, no clubbing Skin: no rash, no lesions, no ulcers Neurologic/Psychiatric: alert, oriented x 3 Microbiology Date/Time Source Procedure Growth Status 09/17/17 18:00 Nasal Nares MRSA Culture - Final NO METHICILLIN RESISTANT STAPH AUREUS... Complete 09/17/17 18:00 Rectum VRE Culture - Final Enterococcus Faecalis - Vre Complete Allison Reynoso M.D. Sep 20, 2017 17:34
--- NOTE | 2017-09-20 19:33 | General Progress Note ---
Assessment/Plan Status: stable, progressing Subjective Date patient seen: Sep 20, 2017 Neurologic/Psychiatric: Reports: anxiety, depressed, emotional problems Allergies: Coded Allergies: No Known Allergies (Unverified , 09/17/17) Subjective the pt is improved however confused about the situation Objective Last 24 Hour Vital Signs Date Time Temp Pulse Resp B/P (MAP) Pulse Ox O2 Delivery O2 Flow Rate FiO2 09/20/17 11:47 97.3 98 20 131/71 96 Room Air 09/20/17 08:57 91 134/71 09/20/17 08:00 95 09/20/17 08:00 98.2 91 20 134/71 95 Room Air 09/20/17 04:16 80 09/20/17 04:00 97.3 90 20 143/70 96 Room Air 09/20/17 00:00 98.1 83 20 146/69 Room Air 09/19/17 23:47 69 09/19/17 21:53 91 146/86 09/19/17 20:00 97.9 91 20 146/86 96 Room Air Intake and Output 09/20/17 09/21/17 19:00 07:00 Intake Total 120 ml Balance 120 ml Intake Oral 120 ml # Voids 1 Height (Feet): 6 Height (Inches): 0.00 Weight (Pounds): 180 General Appearance: no apparent distress, alert Neurologic: alert, oriented x 3, responsive, normal mood/affect Soraida Calix M.D. Sep 20, 2017 19:33
--- NOTE | 2017-09-22 11:33 | Discharge Summary ---
Discharge Summary Hospital Course Date of Admission Sep 17, 2017 at 10:34 Date of Discharge Sep 20, 2017 at 13:30 Admitting Diagnosis Altered LOC HPI Kendall Worrell is a 87 year old male who was admitted on Sep 17, 2017 at 10:34 for Altered Level Of Consciousness Hospital Course [id number] Discharge Discharge Disposition Patient was discharged to SNF/Subacute Facility(03) Discharge Diagnoses: Lolis Martinez NP Sep 22, 2017 11:33
--- NOTE | 2017-09-22 22:45 | Discharge Summary 2 SIG ---
DATE OF ADMISSION: 09/17/2017 DATE OF DISCHARGE: 09/20/2017 CONSULTANTS: 1. Soraida Calix M.D. 2. Allison Reynoso M.D. 3. Christophe Guzman M.D. 4. Roni Mcneal M.D. BRIEF HOSPITAL COURSE: The patient is an 87-year-old male who resides at skilled nursing was taken by EMS for complaints of altered mental status. On evaluation at ED, CT of the head showed no acute intracranial abnormalities with global cortical atrophy with periventricular chronic ischemic changes. Chest x-ray done showed no acute disease. Blood work showed minimally elevated creatinine. He was admitted to telemetry. Carotid ultrasound showed no significant plaques. Blood pressure was elevated. He was given Norvasc 5 mg with p.r.n. clonidine. VRE screen was positive, however, no need to be started on antibiotics as the patient was colonized. He has waxing and waning of consciousness and was confused, disoriented, and agitated. He was diagnosed with encephalopathy. He was continued on his BPH medications and was given physical and occupational therapy. Thyroid function was normal. Urine was clear. He was eventually discharged back to skilled nursing. FINAL DIAGNOSES: 1. Acute encephalopathy. 2. Acute kidney injury. 3. Vancomycin-resistant enterococcus colonization. 4. 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 5. Hypertension. DISPOSITION: The patient was discharged back to [facility]. DISCHARGE MEDICATIONS: Refer to medication list. Victoriano Ramos M.D. I have been assigned to dictate discharge summary on this account and I was not involved in the patient's management. Lolis Martinez N.P. DR: RACHELL JOB#: [id number] CC:
--- NOTE | 2017-09-25 15:52 | Cardiology Report ---
APPROVED REPORT EKG Measurement Heart [id number] CO [id number] Normal sinus rhythm with sinus arrhythmia Possible septal infarct, age undet Normal ECG
--- NOTE | 2017-09-25 15:57 | Cardiology Report ---
APPROVED REPORT EKG Measurement Heart [id number] Normal sinus rhythm with sinus arrhythmia Nonspecific T wave abnormality Abnormal ECG
--- NOTE | 2017-09-26 10:49 | Cardiology Report ---
APPROVED REPORT EXAM: Two-dimensional and M-mode echocardiogram with Doppler and color Doppler. INDICATION Syncope M-Mode DIMENSIONS Left Atrium (MM)3.6 (1.6-4.0cm) Aortic Root3.1 (2.0-3.7cm) Aortic Cusp Exc.2.0 (1.5-2.0cm) Technically difficult study due to poor acoustical windows. M-mode measurements not obtainable due to cardiac structure. Normal left ventricular chamber size, systolic function and wall motion. Left ventricular ejection fraction estimated to be 60-65%. No evidence of left ventricular hypertrophy. No evidence of pericardial or pleural effusion. All other cardiac chamber sizes are within normal limits. Focal aortic valve sclerosis with adequate cusp excursion. Thickened mitral valve leaflets with normal excursion. Mild mitral annulus and aortic root calcification. Pulmonic valve not well visualized. Normal tricuspid valve structure. IVC is not obtainable. A color flow and spectral Doppler study was performed and revealed: No aortic regurgitation. No mitral regurgitation. Mitral diastolic velocities suggest reduced left ventricular relaxation c/w diastolic dysfunction grade 1. No tricuspid regurgitation.
== END 2017-09-20 13:30 | DRG 71 ==
LOC: EDBD 09:10 → EMR 09:28 → 2E 10:34 → EDBEDREQ 11:33 → 2E 13:45
DX: G93.40 Encephalopathy, unspecified (principal); N17.9 Acute kidney failure, unspecified; I69.354 Hemiplegia and hemiparesis following cerebral infarction affecting left non-dominant side; E86.0 Dehydration; F03.90 Unspecified dementia, unspecified severity, without behavioral disturbance, psychotic disturbance, mood disturbance, and anxiety; I10 Essential (primary) hypertension; M54.9 Dorsalgia, unspecified; G89.29 Other chronic pain; Z22.39 Carrier of other specified bacterial diseases; Z79.02 Long term (current) use of antithrombotics/antiplatelets; Z66 Do not resuscitate
CPT/HCPCS: 36415; 70450; 71010; 80048; 80053; 80307; 81003; 82550; 83605; 83880; 84439; 84443; 84484; 85025; 85610; 85730; 87081; 93005; 93306; 93880; 99285